=== PATIENT | female | born 1950 | race Caucasian/White ===

== ENCOUNTER 2017-02-20 19:13 | Emergency (ER) | payer OTHER, MEDICAID ==
[~2017-02-20] VITALS: Ht 157.5 cm; Wt 54.4 kg
[2017-02-20 19:13] VITALS: BP_SYST 146
[2017-02-20] MEDS ORDERED: GASTROGRAFIN 120 ML ONE (19:51)
[2017-02-20 20:06] VITALS: BP_SYST 146
== END 2017-02-20 20:06 | disposition home or self-care (01) ==
LOC: SED 19:13
DX: Z43.1 Encounter for attention to gastrostomy (principal); E11.9 Type 2 diabetes mellitus without complications; F03.90 Unspecified dementia, unspecified severity, without behavioral disturbance, psychotic disturbance, mood disturbance, and anxiety
CPT/HCPCS: 43760; 74240; 99284; Q9963

== ENCOUNTER 2020-11-24 11:01 | Inpatient (IN) | payer OTHER, MEDICAID, SELFPAY ==
[~2020-11-24] VITALS: Ht 154.9 cm; Wt 56.7 kg
[~2020-11-24 11:01] MED LIST: ACET325T53 GT; ASCO500T20 GT; DOCU-144 GT; FER300L GT; HYDR-3919 GT; MULT-1184 GT; SACC250C3 GT; VANORAL GT
[2020-11-24 11:03] VITALS: BP_SYST 122
--- NOTE | 2020-11-24 11:05 | NUR ---
ER at bedside examining patient.
--- NOTE | 2020-11-24 11:08 | NUR ---
Placed in room 06 . Placed on manager cancer, blood pressure machine and pulse oximeter. To gown for exam. Side rails up.
--- NOTE | 2020-11-24 11:10 | NUR ---
Pt brought in ACLS by [facility] from [facility] for c/o fever and "sepsis x5 days" per staff at facility. Pt is non verbal, awake on non rebreather at 96%. All other VSS. Pt is at baseline. Cap refill >3, skin dry and warm with rectal temp of 101.2.
--- NOTE | 2020-11-24 11:13 | NUR ---
# 22 gauge angiocath placed to right hand. Use of asceptic technique. Opsite placed over site. Blood return noted. Blood for lab drawn from site. Flushed with 10 cc of normal saline. No evidence of infiltration noted. Patient tolerated well.
[2020-11-24] MEDS ORDERED: PRO40 GT (11:19)
[2020-11-24] MEDS ORDERED: DONE10TA44 GT (11:19)
[2020-11-24] MEDS ORDERED: MULT-1089 GT (11:19)
--- NOTE | 2020-11-24 11:20 | NUR ---
Medication reconciliation completed with information provided by [facility]. Any prior medication reconciliation on file was reviewed and corrected.
--- NOTE | 2020-11-24 11:20 | NUR ---
Belongings list completed
[2020-11-24 11:36] LABS: BASOPHILS % (AUTO) 0.2 % (0.0-2.0); HEMATOCRIT 41.2 % (36-48); HEMOGLOBIN 13.8 g/dL (12.0-16.0); LYMPHOCYTES # (AUTO) 0.4 K/uL (1.0-5.5); MEAN CORPUSCULAR HEMOGLOBIN 31 pg (27-31); MEAN CORPUSCULAR HGB CONC 33 % (32-36); MEAN CORPUSCULAR VOLUME 92 fL (79.0-98.0); MONOCYTES # (AUTO) 0.6 K/uL (0.0-1.0); MONOCYTES % (AUTO) 2.9 % (1.7-9.3); NEUTROPHILS % (AUTO) 94.9 % (40.0-70.0); PLATELET COUNT (AUTO) 198 K/uL (130-430); RED BLOOD CELL COUNT(AUTO) 4.51 MIL/uL (4.2-6.2); RED CELL DISTRIBUTION WIDTH 13.3 % (9.0-15.0); WHITE BLOOD COUNT (AUTO) 21.1 K/uL (4.8-10.8)
[2020-11-24 11:50] LABS: ANION GAP 14 (5-15); CALCIUM 9.5 mg/dL (8.4-11.0); CHLORIDE 106 mmol/L (98-107); CREATININE 2.28 mg/dL (0.55-1.30); GLUCOSE 210 mg/dL (70-99); POTASSIUM 5.1 mmol/L (3.5-5.1); SODIUM SERUM 139 mmol/L (136-145); UREA NITROGEN, BLOOD 33 mg/dL (8-21)
--- NOTE | 2020-11-24 11:52 | NUR ---
# 14 FR In and Out catheter with use of sterile technique. Immediate return of 200 ml dark yellow urine noted. Urine sample collected and sent to lab. Pt tolerated procedure well. Patient unable to toilet self.
[2020-11-24 11:54] LABS: PROTHROMBIN TIME 10.2 SECS (9.5-12.5)
--- NOTE | 2020-11-24 11:54 | NUR ---
Pt placed on 6L nc with 02 sat of 98%. Addendum: 11/24/20 at 1302 by SDEDHD Pt placed on 6l mask with 02 98%
[2020-11-24 11:55] LABS: ALANINE AMINOTRANSFERASE 66 U/L (12-78); ALBUMIN 3.4 g/dL (3.4-4.8); ASPARTATE AMINOTRANSFERASE 40 U/L (10-37); C-REACTIVE PROTEIN QUANT 9.3 mg/dL (0-0.5); TOTAL BILIRUBIN 0.5 mg/dL (0.0-1.0)
[2020-11-24 12:18] LABS: BILIRUBIN,URINE NEGATIVE (NEGATIVE); BLOOD, URINE NEGATIVE (NEGATIVE); COLOR,URINE YELLOW (YELLOW); GLUCOSE,URINE NEGATIVE (NEGATIVE); KETONES,URINE NEGATIVE (NEGATIVE); LEUKOCYTE ESTERASE ,URINE NEGATIVE (NEGATIVE); NITRITE, URINE NEGATIVE (NEGATIVE); PROTEIN URINE 1+ (NEGATIVE); UROBILINOGEN,URINE 0.2 (0.2-1.0)
[2020-11-24 12:19] LABS: CLARITY/URINE SLIGHTLY HAZY (CLEAR)
[2020-11-24] MEDS ORDERED: LEVOFLOXACIN IN DEXTROSE 5 % 100 ML IV ONE (13:15)
--- NOTE | 2020-11-24 13:16 | NUR ---
Admit orders received from Dr. Phillips, pt to go to Tele bed 112B
[2020-11-24] MEDS: NACL 0.9% 1,000 ML IV SCH ×2 (13:28→22:20)
--- NOTE | 2020-11-24 13:53 | NUR ---
ADMISSION NOTE Received patient from ER via gurney. Patient admitted with diagnosis of aspiratation pneumonia. Patient is awake, alert, oriented X [0, nonverbal. Patient oriented to hospital room, call light, toileting, pain management and safety. Patient unable to verbalize understanding. Personal belongings checked and Belongings List documented. Call light within reach. On 5 L nasal cannula and tolerating well. Will monitor.
[2020-11-24] MEDS ORDERED: ACETAMINOPHEN 325 MG TABLET GT PRN (14:15)
[2020-11-24] MEDS ORDERED: LevALBUTEROL HCL 1.25 MG/0.5 ML *CONC.* VIAL.NEB (XOPENEX CONC.) INH PRN (14:15)
[2020-11-24] MEDS ORDERED: LevALBUTEROL HCL 1.25 MG/0.5 ML *CONC.* VIAL.NEB (XOPENEX CONC.) INH ONE (14:15)
[2020-11-24 14:29] VITALS: BP_SYST 114
--- NOTE | 2020-11-24 14:45 | NUR ---
Dr. Phillips rounds to see patient. Will follow through with new orders. Will monitor.
[2020-11-24] MEDS ORDERED: [UNRECOGNIZED DRUG - OTHER] IV SCH (15:00)
[2020-11-24 15:09] VITALS: BP_SYST 103
[2020-11-24 16:00] VITALS: BP_SYST 150
--- NOTE | 2020-11-24 16:28 | NUR ---
Patient will be admitted to care of [facility]. Admitted to tele unit. Will go to room 112-b. Belongings list completed. Complete and up to date summary report printed. SBAR report to be given at bedside with opportunity for questions.
--- NOTE | 2020-11-24 16:58 | NUR ---
RN note Patient is resting in bed. O2 at 5 L nasal cannula, O2 sat at 98%. Colostomy emptied, 200ml of loose brown stool noted. IV is patent, infusing fluids at 150 ml/hr. Tube feedings at 40 ml/ hour and tolerating well. Patient is calm, resting in bed. Vitals are stable. Will monitor.
--- NOTE | 2020-11-24 18:35 | NUR ---
Dr. Jacqueline mtz MD to see patient. Verbal order for Pat catheter insertion to monitor urine output. Noted and will carry out.
[2020-11-24] MEDS ORDERED: DEXTROSE 50%-WATER 50 ML DISP.SYRIN IVP PRN (18:45)
[2020-11-24] MEDS ORDERED: D5W 1,000 ML IV PRN (18:45)
[2020-11-24] MEDS ORDERED: GLUCOSE (DEXTROSE) ORAL GEL -Adults PO PRN (18:45)
--- NOTE | 2020-11-24 18:49 | NUR ---
CARROLL CATH: # 16 FR Carroll catheter with 10 cc bulb inserted with use of sterile technique. Bulb inflated with 10 cc sterile water. Immediate return of 200 cc YELLOW urine noted. Bedside drainage bag placed below level of bladder. Pt tolerated procedure well.
--- NOTE | 2020-11-24 18:51 | NUR ---
Closing note Patient is resting in bed at this time, on 5 L nasal cannula and tolerating well with no signs of shortness of breath noted. O2 is at 96%. IV is patent, infusing fluids as ordered. G tube feedings running at 40 ml/ hr. Tolerating well. Pat catheter attached draining by gravity. Bed locked and in lowest position. Call light within reach. Bed alarm on. Will endorse to night nurse.
[2020-11-24] MEDS: INSULIN REGULAR, HUMAN 100 UNITS/ML, 10 ML VIAL (humuLIN R) SUBCUT PRN (18:58)
--- NOTE | 2020-11-24 19:15 | NUR ---
OPENING NOTES PATIENT RESTING, HOB ELEVATED, NO RESPIRATORY DISTRESS NOTED. CALL LIGHT WITHIN REACH, PATIENT UNABLE TO USE CALL LIGHT, WILL CLOSELY MONITOR, BED ALARM ON, BED AT LOWEST POSITION, BED LOCKED. CARROLL CATHETER IN PLACE, NO KINKS, NO LOOPS, BAG NOT TOUCHING THE FLOOR. FALL, RESPIRATORY, ASPIRATION, AND SAFETY PRECAUTIONS IN PLACE. WILL CONTINUE TO MONITOR.
[2020-11-24] MEDS: LevALBUTEROL HCL 1.25 MG/0.5 ML *CONC.* VIAL.NEB (XOPENEX CONC.) INH SCH (19:19)
[2020-11-24 20:00] VITALS: BP_SYST 95
[2020-11-24] MEDS: DONEPEZIL HCL 5 MG TABLET (ARICEPT) GT SCH (20:52)
[2020-11-24] MEDS: ZOSYN (PIPERACILLIN/TAZO) 2.25 GM in DEX-ISO (50ml) IV SCH (20:53)
[2020-11-25] VITALS: BP_SYST 112
--- NOTE | 2020-11-25 01:15 | NUR ---
PATIENT RESTING, NO SIGNS OF DISTRESS NOTED. ORAL CARE PROVIDED. WILL CONTINUE TO MONITOR.
[2020-11-25] MEDS: LevALBUTEROL HCL 1.25 MG/0.5 ML *CONC.* VIAL.NEB (XOPENEX CONC.) INH SCH ×4 (01:22→19:22)
[2020-11-25] MEDS: ZOSYN (PIPERACILLIN/TAZO) 2.25 GM in DEX-ISO (50ml) IV SCH ×4 (04:31→21:26)
--- NOTE | 2020-11-25 05:19 | NUR ---
Swallow Eval Called Left a message with Edita, regarding swallow eval consult ordered by Dr. Phillips,
[2020-11-25] MEDS: NACL 0.9% 1,000 ML IV SCH ×3 (05:57→16:21)
[2020-11-25] MEDS: INSULIN REGULAR, HUMAN 100 UNITS/ML, 10 ML VIAL (humuLIN R) SUBCUT PRN (06:06)
[2020-11-25] MEDS: LANSOPRAZOLE 30 MG CAPSULE.DR GT SCH (06:06)
--- NOTE | 2020-11-25 06:22 | NUR ---
CLOSING NOTES PATIENT RESTING, HOB ELEVATED, NO RESPIRATORY DISTRESS NOTED THROUGHOUT SHIFT. CALL LIGHT WITHIN REACH, PATIENT UNABLE TO USE CALL LIGHT,CLOSELY MONITORED, BED ALARM ON, BED AT LOWEST POSITION, BED LOCKED. CARROLL CATHETER IN PLACE, NO KINKS, NO LOOPS, BAG NOT TOUCHING THE FLOOR. FALL, RESPIRATORY, ASPIRATION, AND SAFETY PRECAUTIONS IN PLACE THROUGHOUT SHIFT. ALL NEEDS MET THROUGHOUT SHIFT.
[2020-11-25 07:12] LABS: BASOPHILS % (AUTO) 0.1 % (0.0-2.0); HEMATOCRIT 32.3 % (36-48); HEMOGLOBIN 10.8 g/dL (12.0-16.0); LYMPHOCYTES # (AUTO) 0.6 K/uL (1.0-5.5); LYMPHOCYTES % (AUTO) 2.9 % (20.5-51.5); MEAN CORPUSCULAR HEMOGLOBIN 31 pg (27-31); MEAN CORPUSCULAR HGB CONC 34 % (32-36); MEAN CORPUSCULAR VOLUME 91 fL (79.0-98.0); MONOCYTES # (AUTO) 0.5 K/uL (0.0-1.0); MONOCYTES % (AUTO) 2.3 % (1.7-9.3); NEUTROPHILS # (AUTO) 18.4 K/uL (1.8-7.7); NEUTROPHILS % (AUTO) 94.7 % (40.0-70.0); PLATELET COUNT (AUTO) 136 K/uL (130-430); RED BLOOD CELL COUNT(AUTO) 3.55 MIL/uL (4.2-6.2); RED CELL DISTRIBUTION WIDTH 13.3 % (9.0-15.0); WHITE BLOOD COUNT (AUTO) 19.5 K/uL (4.8-10.8)
--- NOTE | 2020-11-25 07:40 | NUR ---
Opening note Received report from night nurse. Patient is alert and oriented X0, Nonverbal. Resting in bed. On 5 L nasal cannula and tolerating well with no signs of shortness of breath noted. IV is patent, infusing fluids as ordered. G tube in place. Tube feedings stopped at this time due to high residual noted. Pat catheter attached, draining by gravity. Fall, safety and aspiration precautions in place. Will continue to monitor.
[2020-11-25 07:57] LABS: ANION GAP 12 (5-15); CALCIUM 8.8 mg/dL (8.4-11.0); CHLORIDE 110 mmol/L (98-107); GLUCOSE 154 mg/dL (70-99); POTASSIUM 4.4 mmol/L (3.5-5.1); SODIUM SERUM 142 mmol/L (136-145); UREA NITROGEN, BLOOD 40 mg/dL (8-21)
[2020-11-25 08:00] VITALS: BP_SYST 109
[2020-11-25] MEDS: MULTIVITAMINS TAB 1 TABLET GT SCH (08:38)
[2020-11-25] MEDS: DOCUSATE SODIUM 100 MG/10 ML UDC GT SCH (08:38)
[2020-11-25] MEDS: ENOXAPARIN SODIUM 30 MG/0.3 ML SYRINGE SUBCUT SCH (08:39)
--- NOTE | 2020-11-25 10:05 | NUR ---
Nutrition Update Mario Scale 16 noted. Pt admitted for aspiration pneumonia and sepsis. Diet: Glucerna 1.2 at 40 ml/hr, Free Water Flush: 50 via GT BMI: 23.6 kg/m2 RD to follow per nutrition care standards.
--- NOTE | 2020-11-25 11:09 | NUR ---
TUBE FEEDING RESIDUAL Patient has high G tube feeding residual. 150 ml noted. Tube feeding held. Will recheck. Patient vitals are stable. On 5 L nasal cannula and tolerating well. Will monitor.
[2020-11-25 12:34] VITALS: BP_SYST 102
--- NOTE | 2020-11-25 12:49 | NUR ---
SWALLOW/ORAL EVAL CALLED [employer] LEFT A VOICEMAIL WITH JUSTIN.
--- NOTE | 2020-11-25 13:00 | NUR ---
DR. WERNER ROUNDS MD to see patient. Informed him of residual and need to hold feedings. No new orders at this time. Will monitor.
--- NOTE | 2020-11-25 15:02 | NUR ---
RN NOTE Spoke to Dr. Phillips on the floor. Orders to change fluid rate to 100 ml/hr. No residual noted at this time. Tube feeding started again at 30 ml/hr per MD orders. Will monitor tolerance. Repositioned. Colostomy emptied, 100 ml loose brown stool noted. Will continue to monitor.
[2020-11-25 16:25] VITALS: BP_SYST 104
--- NOTE | 2020-11-25 18:53 | NUR ---
Closing note Patient is resting in bed at this time, on 5 L nasal cannula and tolerating well with no signs of shortness of breath noted. IV is patent, infusing fluids as ordered. G tube feedings running at 30 ml/ hr. Tolerating well. Pat catheter attached draining by gravity. Bed locked and in lowest position. Call light within reach. Bed alarm on. Will endorse to night nurse.
[2020-11-25] MEDS: DONEPEZIL HCL 5 MG TABLET (ARICEPT) GT SCH (21:25)
[2020-11-25] MEDS: METOCLOPRAMIDE HCL 10 MG/2 ML VIAL IVP SCH (21:26)
[2020-11-26 00:58] VITALS: BP_SYST 131
[2020-11-26] MEDS: LevALBUTEROL HCL 1.25 MG/0.5 ML *CONC.* VIAL.NEB (XOPENEX CONC.) INH SCH ×4 (01:22→19:20)
--- NOTE | 2020-11-26 03:15 | NUR ---
PATIENT RESTING, NO RESPIRATORY DISTRESS NOTED, SNORING NOTED. WILL CONTINUE TO MONITOR.
[2020-11-26] MEDS: ZOSYN (PIPERACILLIN/TAZO) 2.25 GM in DEX-ISO (50ml) IV SCH ×4 (05:12→21:00)
[2020-11-26] MEDS: LANSOPRAZOLE 30 MG CAPSULE.DR GT SCH (06:40)
[2020-11-26] MEDS: NACL 0.9% 1,000 ML IV SCH ×3 (06:40→18:10)
[2020-11-26 06:42] LABS: BASOPHILS % (AUTO) 0.2 % (0.0-2.0); EOSINOPHILS # (AUTO) 0.1 K/uL (0.0-0.4); EOSINOPHILS % (AUTO) 0.6 % (0.0-4.0); HEMATOCRIT 28.5 % (36-48); HEMOGLOBIN 9.6 g/dL (12.0-16.0); LYMPHOCYTES # (AUTO) 0.8 K/uL (1.0-5.5); LYMPHOCYTES % (AUTO) 4.8 % (20.5-51.5); MEAN CORPUSCULAR HEMOGLOBIN 31 pg (27-31); MEAN CORPUSCULAR HGB CONC 34 % (32-36); MEAN CORPUSCULAR VOLUME 92 fL (79.0-98.0); MONOCYTES # (AUTO) 0.4 K/uL (0.0-1.0); MONOCYTES % (AUTO) 2.6 % (1.7-9.3); NEUTROPHILS % (AUTO) 91.8 % (40.0-70.0); PLATELET COUNT (AUTO) 114 K/uL (130-430); RED CELL DISTRIBUTION WIDTH 13.5 % (9.0-15.0); WHITE BLOOD COUNT (AUTO) 16.4 K/uL (4.8-10.8)
--- NOTE | 2020-11-26 07:15 | NUR ---
CLOSING NOTES PATIENT RESTING, HOB ELEVATED, NO RESPIRATORY DISTRESS NOTED, CURRENTY WITH BREATHING TREATMENT. CALL LIGHT WITHIN REACH, PATIENT UNABLE TO USE CALL LIGHT, WILL CLOSELY MONITOR, BED ALARM ON, BED AT LOWEST POSITION, BED LOCKED. CARROLL CATHETER IN PLACE, NO KINKS, NO LOOPS, BAG NOT TOUCHING THE FLOOR. FALL, RESPIRATORY, ASPIRATION, AND SAFETY PRECAUTIONS IN PLACE THROUGHOUT SHIFT. ALL NEEDS MET THROUGHOUT SHIFT. WILL ENDORSE CARE TO ONCOMING SHIFT.
[2020-11-26 07:51] LABS: ANION GAP 10 (5-15); CALCIUM 8.3 mg/dL (8.4-11.0); CHLORIDE 114 mmol/L (98-107); CREATININE 0.95 mg/dL (0.55-1.30); GLUCOSE 114 mg/dL (70-99); POTASSIUM 4.2 mmol/L (3.5-5.1); SODIUM SERUM 141 mmol/L (136-145); UREA NITROGEN, BLOOD 23 mg/dL (8-21)
[2020-11-26 08:15] VITALS: BP_SYST 110
--- NOTE | 2020-11-26 08:15 | NUR ---
Patient quietly in bed with no distress noted at this time. Patient stable.
[2020-11-26] MEDS: DOCUSATE SODIUM 100 MG/10 ML UDC GT SCH (09:49)
[2020-11-26] MEDS: MULTIVITAMINS TAB 1 TABLET GT SCH (09:49)
[2020-11-26] MEDS: METOCLOPRAMIDE HCL 10 MG/2 ML VIAL IVP SCH ×2 (09:50→21:01)
[2020-11-26] MEDS: ENOXAPARIN SODIUM 30 MG/0.3 ML SYRINGE SUBCUT SCH (09:54)
--- NOTE | 2020-11-26 09:55 | NUR ---
Scheduled IV abx, subq med, and G-tube medications given per order. Patient stable at this time.
--- NOTE | 2020-11-26 11:15 | NUR ---
Patient resting comfortably in bed with eyes closed. Patient stable at this time.
--- NOTE | 2020-11-26 11:54 | NUR ---
S.T. SWALLOW EVAL SWALLOW EVAL COMPLETED. PT PRESENTS W/ SEV OROPHARYNGEAL DYSPHAGIA CHARACTERIZED BY INCONSISTENT AIR BAG BUILDER OF BOLUS, OVERREACTIVE BITE REFLEX, DELAYED BOLUS TRANSFER, SUSPECTED DELAYED SWALLOW, AND COUGHING ON TSP HONEY THICK LIQUIDS INDICATING RISK FOR ASPIRATION. PT IS AT HIGH RISK FOR ASPIRATION, MALNUTRITION, AND DEHYDRATION. REC: NPO - CONTINUE TF. NURSE RAMA NOTIFIED.
[2020-11-26 12:26] VITALS: BP_SYST 124
--- NOTE | 2020-11-26 13:15 | NUR ---
Checked blood sugar: 105 mg/dl - no coverage required. Patient receiving breathing treatment at this time. Patient stable.
--- NOTE | 2020-11-26 14:33 | NUR ---
Scheduled IV abx given per order. Patient resting quietly in bed with no respiratory distress noted. Patient stable.
--- NOTE | 2020-11-26 15:45 | NUR ---
Patient resting comfortably in bed with no distress noted. Patient stable.
[2020-11-26 16:55] VITALS: BP_SYST 121
--- NOTE | 2020-11-26 17:24 | NUR ---
Dietitian Recommendations * Recommend Glucerna 1.5 at 45 ml/hr (goal rate) via GT Provides: 1620 kcal/day, 89 gm protein/day Meets: 95% of lower end of estimated caloric needs and 103% of upper end of estimated protein needs * Free Water Flush per physician d/t ARF LP, RD Please refer to Nutrition Assessment for details. Addendum: 11/26/20 at [address] Amended: Links added.
--- NOTE | 2020-11-26 18:20 | NUR ---
Checked blood sugar: 111 mg/dl - no cover required. Patient stable throughout shift.
--- NOTE | 2020-11-26 18:30 | NUR ---
Checked residuals: 10mls. Flushed G-tube with 200mls of free water. Patient stable throughout shift.
--- NOTE | 2020-11-26 19:30 | NUR ---
OPENING NOTE RECEIVED REPORT FROM DAY RN. PATIENT LAYING IN BED WITH RESPIRATIONS EVEN AND UNLABORED ON 2L 02 VIA NC. NO SIGNS OF DISTRESS NOTED. PATIENT NONVERBAL. RIGHT HAND IV 22G. PATENT AND INTACT RUNNING IVF NO SIGNS OF INFILTRATION NOTED. RLQ COLOSTOMY BAG INTACT. G-TUBE INTACT RUNNING TUBE FEEDING. CARROLL CATHETER INTACT DRAINING YELLOW FLUID. BED IN LOWEST AND LOCKED POSITION. CALL LIGHT WITHIN REACH. WILL CONTINUE TO MONITOR.
[2020-11-26 20:03] VITALS: BP_SYST 134
[2020-11-26] MEDS: DONEPEZIL HCL 5 MG TABLET (ARICEPT) GT SCH (21:01)
--- NOTE | 2020-11-26 21:45 | NUR ---
ROUNDS G TUBE DRESSING CHANGED. PT TOLERATED WELL. WILL CONTINUE TO MONITOR.
[2020-11-27 00:45] VITALS: BP_SYST 141
[2020-11-27] MEDS: LevALBUTEROL HCL 1.25 MG/0.5 ML *CONC.* VIAL.NEB (XOPENEX CONC.) INH SCH ×4 (02:09→19:19)
[2020-11-27] MEDS: ZOSYN (PIPERACILLIN/TAZO) 2.25 GM in DEX-ISO (50ml) IV SCH ×4 (03:08→20:32)
[2020-11-27] MEDS: LANSOPRAZOLE 30 MG CAPSULE.DR GT SCH (05:56)
[2020-11-27] MEDS: NACL 0.9% 1,000 ML IV SCH ×3 (05:57→18:21)
--- NOTE | 2020-11-27 06:10 | NUR ---
G-TUBE RESIDUAL CHECK RESIDUAL CHECKED WITH HIGH AMOUNT OF 120ML. TUBE FEEDING HELD AT THIS TIME. WILL ENDORSE TO DAY RN. VS STABLE. NO SIGNS OF DISTRESS NOTED.
--- NOTE | 2020-11-27 06:17 | NUR ---
CLOSING NOTE PATIENT LAYING IN BED WITH RESPIRATIONS EVEN AND UNLABORED ON 2L O2 VIA NC. NO SIGNS OF DISTRESS NOTED. CARROLL INTACT AND DRAINING YELLOW FLUID. LUQ COLOSTOMY BAD INTACT WITH BROWN LOOSE STOOL NOTED. LEFT G-TUBE INTACT. DRESSING CLEAN. RIGHT HAND IV RUNNING IVF AT 100ML/HR. BED IN LOWEST AND LOCKED POSITION. CALL LIGHT WITHIN REACH. SAFETY/FALL PRECAUTIONS IN PLACE. ALL NEEDS MET. WILL ENDORSE TO DAY RN.
[2020-11-27 07:27] LABS: BASOPHILS % (AUTO) 0.1 % (0.0-2.0); EOSINOPHILS # (AUTO) 0.4 K/uL (0.0-0.4); HEMOGLOBIN 8.5 g/dL (12.0-16.0); LYMPHOCYTES # (AUTO) 0.9 K/uL (1.0-5.5); LYMPHOCYTES % (AUTO) 9.9 % (20.5-51.5); MEAN CORPUSCULAR HEMOGLOBIN 31 pg (27-31); MEAN CORPUSCULAR HGB CONC 34 % (32-36); MEAN CORPUSCULAR VOLUME 91 fL (79.0-98.0); MONOCYTES # (AUTO) 0.4 K/uL (0.0-1.0); MONOCYTES % (AUTO) 4.7 % (1.7-9.3); NEUTROPHILS # (AUTO) 7.7 K/uL (1.8-7.7); NEUTROPHILS % (AUTO) 81.3 % (40.0-70.0); PLATELET COUNT (AUTO) 116 K/uL (130-430); RED BLOOD CELL COUNT(AUTO) 2.74 MIL/uL (4.2-6.2); RED CELL DISTRIBUTION WIDTH 13.3 % (9.0-15.0); WHITE BLOOD COUNT (AUTO) 9.4 K/uL (4.8-10.8)
[2020-11-27 07:39] LABS: ANION GAP 10 (5-15); CALCIUM 8.1 mg/dL (8.4-11.0); CHLORIDE 111 mmol/L (98-107); CREATININE 0.81 mg/dL (0.55-1.30); GLUCOSE 111 mg/dL (70-99); POTASSIUM 3.7 mmol/L (3.5-5.1); SODIUM SERUM 140 mmol/L (136-145); UREA NITROGEN, BLOOD 17 mg/dL (8-21)
[2020-11-27] MEDS: MULTIVITAMINS TAB 1 TABLET GT SCH (09:43)
[2020-11-27] MEDS: DOCUSATE SODIUM 100 MG/10 ML UDC GT SCH (09:43)
[2020-11-27] MEDS: ENOXAPARIN SODIUM 30 MG/0.3 ML SYRINGE SUBCUT SCH (09:44)
[2020-11-27] MEDS: METOCLOPRAMIDE HCL 10 MG/2 ML VIAL IVP SCH ×2 (09:44→20:32)
--- NOTE | 2020-11-27 19:20 | NUR ---
Opening Note Patient is resting, head of bed elevated. No respiratory distress noted. Call light within reach, bed alarm on, bed at lowest position, bed locked. Pat catheter in place, draining by gravity, no kinks, no loops, bag not touching the floor. fall, respiratory, aspiration, and safety precaution in placed. Was endorsed by AM shift RN hold g tube feeding for 4 hours in a 24 hr period. Will continue to monitor.
--- NOTE | 2020-11-27 19:25 | NUR ---
Residual of 270 ml noted. Will hold feeding for now, will reassess at 2029.
[2020-11-27 20:00] VITALS: BP_SYST 144
[2020-11-27] MEDS: DONEPEZIL HCL 5 MG TABLET (ARICEPT) GT SCH (20:32)
[2020-11-28] VITALS: BP_SYST 137
--- NOTE | 2020-11-28 01:00 | NUR ---
Patient is resting, no distress noted, turning provided. Will continue to monitor.
[2020-11-28] MEDS: LevALBUTEROL HCL 1.25 MG/0.5 ML *CONC.* VIAL.NEB (XOPENEX CONC.) INH SCH ×4 (01:04→19:43)
--- NOTE | 2020-11-28 01:30 | NUR ---
New Gtube feeding hung, very little residual noted. Gtube intact, patent, no kinks. Will continue to monitor.
[2020-11-28] MEDS: ZOSYN (PIPERACILLIN/TAZO) 2.25 GM in DEX-ISO (50ml) IV SCH ×4 (03:36→20:40)
[2020-11-28] MEDS: NACL 0.9% 1,000 ML IV SCH ×2 (03:36→14:14)
[2020-11-28] MEDS: LANSOPRAZOLE 30 MG CAPSULE.DR GT SCH (06:11)
--- NOTE | 2020-11-28 06:43 | NUR ---
Closing Note Patient is resting, head of bed elevated. No respiratory distress noted throughout shift. Call light within reach, followed closely, as patient unable to use call light, bed alarm on, bed at lowest position, bed locked. Pat catheter in place, draining by gravity, no kinks, no loops, bag not touching the floor. fall, respiratory, aspiration, and safety precautions in place throughout shift. About 70 ml of residual noted at this time, patient tolerated g tube feeding well throughout shift. All needs met throughout shift. Will endorse care to oncoming shift.
[2020-11-28 08:00] VITALS: BP_SYST 140
[2020-11-28] MEDS: DOCUSATE SODIUM 100 MG/10 ML UDC GT SCH (09:01)
[2020-11-28] MEDS: METOCLOPRAMIDE HCL 10 MG/2 ML VIAL IVP SCH ×2 (09:02→20:39)
[2020-11-28] MEDS: MULTIVITAMINS TAB 1 TABLET GT SCH (09:02)
[2020-11-28] MEDS: ENOXAPARIN SODIUM 30 MG/0.3 ML SYRINGE SUBCUT SCH (09:04)
[2020-11-28 12:00] VITALS: BP_SYST 131
[2020-11-28 16:00] VITALS: BP_SYST 115
--- NOTE | 2020-11-28 19:05 | NUR ---
Opening Note Patient is resting, head of bed elevated. No respiratory distress noted. Call light within reach, patient unable to use call light, will follow closely, bed alarm on, bed at lowest position, bed locked. Pat catheter in place, draining by gravity, no kinks, no loops, bag not touching the floor. Fall, respiratory, aspiration, and safety precaution in placed. Residual of 210 ml at this time, will reassess in an hour. Endorsed by AM shift that Glucerna 1.2 not available, Glucerna 1.5 provided and hung, patient tolerated well. Will continue to monitor.
[2020-11-28 19:10] VITALS: BP_SYST 139
[2020-11-28 20:10] VITALS: BP_SYST 139
[2020-11-28] MEDS: DONEPEZIL HCL 5 MG TABLET (ARICEPT) GT SCH (20:39)
[2020-11-29 00:05] VITALS: BP_SYST 145
--- NOTE | 2020-11-29 00:26 | NUR ---
Patient turned, patient unable to help. No distress noted. Will continue to monitor.
[2020-11-29] MEDS: NACL 0.9% 1,000 ML IV SCH ×2 (00:51→10:21)
[2020-11-29] MEDS: LevALBUTEROL HCL 1.25 MG/0.5 ML *CONC.* VIAL.NEB (XOPENEX CONC.) INH SCH ×3 (01:30→13:21)
[2020-11-29] MEDS: ZOSYN (PIPERACILLIN/TAZO) 2.25 GM in DEX-ISO (50ml) IV SCH ×3 (03:07→14:22)
[2020-11-29] MEDS: LANSOPRAZOLE 30 MG CAPSULE.DR GT SCH (06:05)
--- NOTE | 2020-11-29 06:19 | NUR ---
Closing Note Patient is resting, head of bed elevated. No respiratory distress noted. Call light within reach, patient unable to use call light, will follow closely, bed alarm on, bed at lowest position, bed locked. Pat catheter in place, draining by gravity, no kinks, no loops, bag not touching the floor. Colostomy bag emptied. Fall, respiratory, aspiration, and safety precaution in place throughout shift. Residual of 120 ml at this time. Patient tolerated feeding throughout shift. All Needs met throughout shift. Will endorse care throughout shift.
[2020-11-29 06:58] LABS: BASOPHILS % (AUTO) 0.2 % (0.0-2.0); EOSINOPHILS # (AUTO) 0.4 K/uL (0.0-0.4); EOSINOPHILS % (AUTO) 5.1 % (0.0-4.0); HEMATOCRIT 24.9 % (36-48); HEMOGLOBIN 8.5 g/dL (12.0-16.0); LYMPHOCYTES # (AUTO) 1.1 K/uL (1.0-5.5); LYMPHOCYTES % (AUTO) 12.7 % (20.5-51.5); MEAN CORPUSCULAR HEMOGLOBIN 31 pg (27-31); MEAN CORPUSCULAR HGB CONC 34 % (32-36); MEAN CORPUSCULAR VOLUME 91 fL (79.0-98.0); MONOCYTES # (AUTO) 0.6 K/uL (0.0-1.0); NEUTROPHILS # (AUTO) 6.5 K/uL (1.8-7.7); PLATELET COUNT (AUTO) 170 K/uL (130-430); RED BLOOD CELL COUNT(AUTO) 2.75 MIL/uL (4.2-6.2); RED CELL DISTRIBUTION WIDTH 13.3 % (9.0-15.0); WHITE BLOOD COUNT (AUTO) 8.6 K/uL (4.8-10.8)
[2020-11-29 07:36] LABS: ANION GAP 9 (5-15); CALCIUM 8.2 mg/dL (8.4-11.0); CHLORIDE 112 mmol/L (98-107); CREATININE 0.71 mg/dL (0.55-1.30); GLUCOSE 102 mg/dL (70-99); POTASSIUM 3.7 mmol/L (3.5-5.1); SODIUM SERUM 144 mmol/L (136-145); UREA NITROGEN, BLOOD 15 mg/dL (8-21)
[2020-11-29 08:32] LABS: TOTAL IRON BIND. CAPACITY 111 ug/dL (250-450)
[2020-11-29] MEDS: DOCUSATE SODIUM 100 MG/10 ML UDC GT SCH (08:47)
[2020-11-29] MEDS: METOCLOPRAMIDE HCL 10 MG/2 ML VIAL IVP SCH (08:48)
[2020-11-29] MEDS: ENOXAPARIN SODIUM 30 MG/0.3 ML SYRINGE SUBCUT SCH (08:48)
[2020-11-29] MEDS: MULTIVITAMINS TAB 1 TABLET GT SCH (08:48)
--- NOTE | 2020-11-29 11:39 | NUR ---
CM note: faxed snf referral /ordered dc back to [facility] per dr. Phillips, attn to Curtis. Addendum: 11/29/20 at 1412 by Carly Santana RN Per Curtis: assigned pt to room 50 B, RN to report # [phone]. Booked with Ah[facility]: [facility] for pharmacy picking technician time at 1600 pm . PIERO Bell made aware. DC package placed in [facility].
--- NOTE | 2020-11-29 13:13 | NUR ---
Nutrition F/U Admitting Diagnosis: Aspiration pneumonia and sepsis Medical History Comment: PMH: HTN, DM, dementia, PVD of LE per physician notes Pt was also found w/ dehydration and ARF per physician notes SARS-CoV-2 Ag (Rapid) Negative 11/24 Subjective Information: Pt was seen in bed, EN formula is hanging but not infusing. RD s/w pt's primary RN who reported that EN was held this around 8am and to be resumed around noon. When RD asked RN, she stated that it is a 4hr break from EN. Pt has been tolerating EN well, on issues. Pt is on 2L NC, last BM 11/29 x1 stool total 400ml, Mario scale: 16, pt noted w/ erythema on lower right heel. Abdomen is soft and nondistended w/ active bowel sounds. EN rate: 45ml, GRV: 210ml 11/28. Pt was seen by speech therapist on 11/26 and rec for NPO and to continue w/ EN support. Current Diet Order/Nutrition Support: Glucerna 1.5 at 45 ml/hr, Free Water Flush: per physician via GT x2 days Pertinent Medications reglan, lovenox, MVI, colace liquid, piperacillin/tazobactam IV, SSI Pertinent Labs 11/29: Na 144WNL, K 3.7WNL, BG 102H, BUN 15WNL, Cre 0.71WNL. Height: 5 feet, 1.00 inches Weight: 125 pounds/ 56.537179 kilograms (11/26) -stable Body Mass Index: 23.62 kg/m2 [place]/Adjusted Body Weight: 105#/48 kg Estimated Energy Expenditure (kcals/day) 0066-7121 kcal/day (30-35 kcal/kg CBW d/t sepsis) Estimated Protein Required (g/day) 57-86 gm/day (1-1.5 gm/kg CBW d/t ARF, GERIAT status, sepsis) Estimated Fluid Required (l/day) Per physician d/t ARF Problem/Etiology/Signs/Symptoms Suboptimal EN support related to increased nutritional needs as evidenced by estimated nutritional requirements for sepsis and current TF prescription meets less than 80% of estimated caloric requirements. (*ongoing) Expected Outcomes/Goals - Monitor EN support intake and tolerance w/ goal of pt meeting at least 80% of estimated nutritional needs, labs trending WNL, normal GI function, and skin integrity/wt maintenance Dietitian Recommendations * Recommend: Glucerna 1.5 at 45 ml/hr (goal rate) via GT Provides: 1620 kcal/day, 89 gm protein/day Meets: 95% of lower end of estimated caloric needs and 103% of upper end of estimated protein needs * Free Water Flush per physician d/t ARF Follow Up High Risk: F/U in 2-3days
--- NOTE | 2020-11-29 13:23 | NUR ---
Dietitian Recommendations * Recommend: Glucerna 1.5 at 45 ml/hr (goal rate) via GT Provides: 1620 kcal/day, 89 gm protein/day Meets: 95% of lower end of estimated caloric needs and 103% of upper end of estimated protein needs * Free Water Flush per physician d/t ARF Please see Nutrition F/U note for details. INTERMEDIATE, RD
[2020-11-29 14:45] VITALS: BP_SYST 128
--- NOTE | 2020-11-29 15:48 | NUR ---
CALLED THE FACILITY, [facility], , REPORT TO NELSY, THE ONE WHO WILL BE RECEIVING THIS PATIENT TO ROOM 50B. MADE AWARE PATIENT IS TO CONTINUE WITH IVF, NS AT 100CC /HR, AND ZOSYN 2.25 MG IVPB X 7 DAYS, HEP LOCK ON RIGHT HAND #22 REMAINS, CARROLL DISCONTINUES. NEW COLOSTOMY CHANGED. NOW AWAITING STORE COORDINATOR, EXPECTED AT 1600
--- NOTE | 2020-11-29 16:00 | NUR ---
PATIENT'S DAUGHTER, DELANO MIRANDA, AND MADE AWARE OF THIS TRANSFER.
[2020-11-29] MEDS ORDERED: FERROUS GLUCONATE 324 MG TABLET GT SCH (21:00)
[2020-11-30 04:06] LABS: FOLATE (FOLIC ACID) 8.2 ng/mL (>3.0)
[2020-11-30] MEDS ORDERED: FOLIC ACID 1 MG TABLET GT SCH (09:00)
--- NOTE | 2020-11-30 10:19 | NUR ---
Disposition code 03
== END 2020-11-29 16:12 | DRG 871 ==
LOC: SED 11:01 → STU 13:11
PROVIDERS: ADMIT Family Medicine; ATTEND Family Medicine
DX: A41.9 Sepsis, unspecified organism (principal); J69.0 Pneumonitis due to inhalation of food and vomit; J96.91 Respiratory failure, unspecified with hypoxia; N17.9 Acute kidney failure, unspecified; E86.0 Dehydration; F03.90 Unspecified dementia, unspecified severity, without behavioral disturbance, psychotic disturbance, mood disturbance, and anxiety; Z20.822 Contact with and (suspected) exposure to COVID-19; I10 Essential (primary) hypertension; D50.9 Iron deficiency anemia, unspecified; E11.51 Type 2 diabetes mellitus with diabetic peripheral angiopathy without gangrene
CPT/HCPCS: 36415; 71045; 80048; 80053; 81003; 82607; 82728; 82746; 82962; 83540; 83550; 83605; 83735; 84484; 85025; 85610-TC; 85730-TC; 86140; 87040-TC; 87081; 87086; 92610-GN; 93005; 94640; 94760; 99285; G0378; J1650; J1815; J1956; J2543; J2765; J7612

== ENCOUNTER 2023-12-07 13:13 | Inpatient (IN) | payer OTHER, MEDICAID ==
[~2023-12-07] VITALS: Ht 165.1 cm; Wt 58.5 kg
[2023-12-07 13:13] VITALS: BP_SYST 92; PULSE 94; RESP 14; TEMP 98.2; O2SAT 95
[2023-12-07] MEDS ORDERED: VANCOMYCIN HCL 1000 MG/VIAL IV ONE (13:49)
[2023-12-07] MEDS ORDERED: PIPERACILLIN/TAZOBACTAM 3.375 GM/VIAL (ZOSYN) IV ONE ×2 (13:50)
[2023-12-07] MEDS ORDERED: POLY30DR11 BOTH EYES (13:54)
[2023-12-07] MEDS ORDERED: LANS30CA53 GT (13:54)
[2023-12-07] MEDS ORDERED: HYDR-3927 GT (13:54)
[2023-12-07] MEDS ORDERED: DOCU100T10 GT (13:54)
[2023-12-07] MEDS ORDERED: PRED-531 GT (13:54)
[2023-12-07] MEDS ORDERED: IPRA3AMP9 INH ×2 (13:54)
[2023-12-07] MEDS ORDERED: FOLI-43 GT (13:54)
[2023-12-07] MEDS ORDERED: FERR220S13 GT (13:54)
[2023-12-07] MEDS ORDERED: CARB-61 GT (13:54)
[2023-12-07] MEDS ORDERED: CLON0.5T2 GT (13:54)
[2023-12-07] MEDS ORDERED: CHOL500013 GT (13:54)
[2023-12-07] MEDS ORDERED: CRAN450T9 GT (13:54)
[2023-12-07] MEDS ORDERED: CALC-1230 GT (13:54)
[2023-12-07] MEDS ORDERED: RIVA10TA GT (13:54)
[2023-12-07] MEDS ORDERED: DONE10TA4 GT (13:54)
[2023-12-07] MEDS: IPRATROPIUM/ALBUTEROL SULFATE 3 ML AMPUL.NEB (DUONEB) INH ONE (14:03)
[2023-12-07] MEDS: NS 1000 ML IV.SOLN IV ONE (14:17)
[2023-12-07] MEDS: PIPERACILLIN/TAZO 3.375 GM in D5W 50 ML IV ONE (14:18)
[2023-12-07] MEDS: VANCOMYCIN HCL 1,000 MG in D5W 250 ML IV ONE (15:13)
[2023-12-07 15:47] LABS: BILIRUBIN,URINE NEGATIVE (NEGATIVE); BLOOD, URINE 3+ (NEGATIVE); COLOR,URINE YELLOW (YELLOW); GLUCOSE,URINE TRACE (NEGATIVE); KETONES,URINE NEGATIVE (NEGATIVE); LEUKOCYTE ESTERASE ,URINE 2+ (NEGATIVE); NITRITE, URINE POSITIVE (NEGATIVE); PROTEIN URINE TRACE (NEGATIVE); UROBILINOGEN,URINE 0.2 (0.2-1.0)
[2023-12-07 16:06] LABS: BASOPHILS % (AUTO) 0.2 % (0.0-2.0); HEMATOCRIT 30.7 % (36-48); HEMOGLOBIN 10.3 g/dL (12.0-16.0); LYMPHOCYTES # (AUTO) 0.4 K/uL (1.0-5.5); MEAN CORPUSCULAR HEMOGLOBIN 31 pg (27-31); MEAN CORPUSCULAR HGB CONC 34 % (32-36); MEAN CORPUSCULAR VOLUME 92 fL (79.0-98.0); MONOCYTES # (AUTO) 0.4 K/uL (0.0-1.0); MONOCYTES % (AUTO) 3.2 % (1.7-9.3); NEUTROPHILS # (AUTO) 11.3 K/uL (1.8-7.7); NEUTROPHILS % (AUTO) 93.6 % (40.0-70.0); PLATELET COUNT (AUTO) 212 K/uL (130-430); RED BLOOD CELL COUNT(AUTO) 3.33 MIL/uL (4.2-6.2); RED CELL DISTRIBUTION WIDTH 14.5 % (9.0-15.0)
[2023-12-07 16:11] LABS: BACTERIA,URINE MODERATE /HPF (None Seen); CLARITY/URINE HAZY (CLEAR); MUCUS,URINE None Seen /LPF (None Seen)
[2023-12-07 16:15] LABS: PROTHROMBIN TIME 10.3 SECS (9.5-12.5)
[2023-12-07 16:33] LABS: ALANINE AMINOTRANSFERASE 30 U/L (12-78); ALBUMIN 2.9 g/dL (3.4-4.8); ANION GAP 4 (5-15); ASPARTATE AMINOTRANSFERASE 43 U/L (10-37); BILIRUBIN,DIRECT 0.1 mg/dL (0.0-0.3); CALCIUM 8.9 mg/dL (8.4-11.0); CARBON DIOXIDE 38 mmol/L (23-29); CHLORIDE 100 mmol/L (98-107); CREATININE 0.82 mg/dL (0.55-1.30); GLUCOSE 181 mg/dL (74-106); SODIUM SERUM 142 mmol/L (136-145); TOTAL BILIRUBIN 0.6 mg/dL (0.0-1.0); TOTAL PROTEIN, SERUM 6.3 g/dL (6.4-8.3); UREA NITROGEN, BLOOD 30 mg/dL (8-21)
[2023-12-07] MEDS: D5/0.45 NS 1,000 ML IV ONE (18:24)
[2023-12-07] MEDS ORDERED: LevALBUTEROL HCL 1.25 MG/0.5 ML *CONC.* VIAL.NEB (XOPENEX CONC.) INH SCH (20:45)
[2023-12-07] MEDS ORDERED: LevALBUTEROL HCL 1.25 MG/0.5 ML *CONC.* VIAL.NEB (XOPENEX CONC.) INH PRN (20:45)
[2023-12-07] MEDS ORDERED: NALOXONE HCL 0.4 MG/ML AMP (NARCAN) IVP PRN (20:45)
[2023-12-07] MEDS ORDERED: ACETAMINOPHEN 650 MG/20.3 ML UDC GT PRN (20:45)
[2023-12-07] MEDS ORDERED: CALCIUM 600/VIT D GT SCH (21:00)
[2023-12-07] MEDS ORDERED: NON-FORMULARY MEDICATION (Cranberry Fruit (Cranberry) 1 TAB) GT SCH (21:00)
[2023-12-07 21:04] VITALS: BP_SYST 130; PULSE 84; O2SAT 99
[2023-12-07] MEDS ORDERED: AZITHROMYCIN 500 MG/VIAL (ZITHROMAX) IV ONE (21:39)
[2023-12-07] MEDS: predniSONE 20 MG TABLET GT SCH (21:51)
[2023-12-07] MEDS: clonazePAM 0.5 MG TABLET GT SCH (21:51)
[2023-12-07] MEDS: 0.45% NACL 1,000 ML IV SCH (21:56)
[2023-12-07] MEDS: AZITHROMYCIN 500 MG in NS 250 ML IV SCH (21:59)
[2023-12-07] MEDS ORDERED: ALBUTEROL SULFATE 0.083% 2.5 MG/3 ML VIAL.NEB INH PRN (22:00)
[2023-12-07 22:40] VITALS: BP_SYST 131; PULSE 74; RESP 20; TEMP 98.5
[2023-12-07] MEDS: CARBIDOPA/LEVODOPA 25/100 MG TABLET GT SCH (23:18)
[2023-12-07] MEDS: CALCIUM CARBONATE/VITAMIN D3 1 TAB TABLET GT SCH (23:18)
[2023-12-07] MEDS: CEFEPIME 1 GM in D5W 50 ML IV SCH (23:43)
[2023-12-08] MEDS: ALBUTEROL SULFATE 0.083% 2.5 MG/3 ML VIAL.NEB INH SCH (03:14)
[2023-12-08 05:42] LABS: HEMATOCRIT 30.1 % (36-48); HEMOGLOBIN 9.9 g/dL (12.0-16.0); LYMPHOCYTES # (AUTO) 0.4 K/uL (1.0-5.5); MEAN CORPUSCULAR HEMOGLOBIN 31 pg (27-31); MEAN CORPUSCULAR HGB CONC 33 % (32-36); MEAN CORPUSCULAR VOLUME 93 fL (79.0-98.0); MONOCYTES # (AUTO) 0.2 K/uL (0.0-1.0); MONOCYTES % (AUTO) 1.2 % (1.7-9.3); NEUTROPHILS # (AUTO) 13.7 K/uL (1.8-7.7); NEUTROPHILS % (AUTO) 95.8 % (40.0-70.0); PLATELET COUNT (AUTO) 211 K/uL (130-430); RED BLOOD CELL COUNT(AUTO) 3.24 MIL/uL (4.2-6.2); RED CELL DISTRIBUTION WIDTH 14.1 % (9.0-15.0); WHITE BLOOD COUNT (AUTO) 14.3 K/uL (4.8-10.8)
[2023-12-08 05:55] LABS: ALANINE AMINOTRANSFERASE 15 U/L (12-78); ALBUMIN 2.7 g/dL (3.4-4.8); ANION GAP 5 (5-15); ASPARTATE AMINOTRANSFERASE 54 U/L (10-37); CARBON DIOXIDE 33 mmol/L (23-29); CHLORIDE 104 mmol/L (98-107); CREATININE 0.68 mg/dL (0.55-1.30); GLUCOSE 140 mg/dL (74-106); POTASSIUM 3.7 mmol/L (3.5-5.1); SODIUM SERUM 142 mmol/L (136-145); TOTAL BILIRUBIN 0.5 mg/dL (0.0-1.0); TOTAL PROTEIN, SERUM 6.1 g/dL (6.4-8.3); UREA NITROGEN, BLOOD 18 mg/dL (8-21)
[2023-12-08 07:21] VITALS: O2SAT 98
[2023-12-08] MEDS: CHOLECALCIFEROL (VITAMIN D3) 5,000 UNIT TABLET GT SCH (09:12)
[2023-12-08] MEDS: LANSOPRAZOLE 30 MG CAPSULE.DR GT SCH (09:12)
[2023-12-08] MEDS: DOCUSATE SODIUM 100 MG/10 ML UDC GT SCH (09:12)
[2023-12-08] MEDS: FERROUS SULFATE 300 MG/5 ML UDC GT SCH (09:12)
[2023-12-08] MEDS: PEG 400/HYPROMELLOSE/GLYCERIN 15 ML DROPS BOTH EYES SCH (09:13)
[2023-12-08] MEDS: FOLIC ACID 1 MG TABLET GT SCH (09:13)
[2023-12-08] MEDS: RIVAROXABAN 10 MG TABLET GT SCH (09:18)
[2023-12-08 13:23] VITALS: BP_SYST 164; PULSE 98; RESP 19; TEMP 97.6; O2SAT 100
[2023-12-08 13:36] VITALS: O2SAT 100
[2023-12-08 15:19] LABS: ABG O2 SAT% ESTIMATE 97.9 % (94.0-98.0); BLOOD GAS BASE EXCESS 7.7 mmol/L (-2.0-3.0); BLOOD GAS HCO3 31.1 mmol/L (21.0-28.0); BLOOD GAS PCO2 38.9 mmHg (32.0-45.0); BLOOD GAS PO2 96.8 mmHg (83.0-108.0)
[2023-12-08 15:20] LABS: ALLEN'S TEST POSITIVE (P)
[2023-12-08 17:21] VITALS: BP_SYST 127; PULSE 87; RESP 19; TEMP 98.2; O2SAT 99
[2023-12-08 19:32] VITALS: O2SAT 97
[2023-12-08] MEDS: ACETYLCYSTEINE 20% 4 ML VIAL (RT) INH SCH (19:32)
[2023-12-08 20:00] VITALS: BP_SYST 129; PULSE 82; RESP 16; TEMP 98.1; O2SAT 97
[2023-12-08] MEDS: CARVEDILOL 12.5 MG TABLET (COREG) GT SCH (20:35)
[2023-12-08] MEDS: DONEPEZIL HCL 5 MG TABLET (ARICEPT) GT SCH (20:36)
[2023-12-09] VITALS (9 sets, daily range): BP systolic 121–155; PULSE 63–76; RESP 16–20; TEMP 96.7–98.8; O2SAT 95–100
[2023-12-09 06:47] LABS: HEMATOCRIT 26.9 % (36-48); HEMOGLOBIN 8.7 g/dL (12.0-16.0); LYMPHOCYTES # (AUTO) 0.6 K/uL (1.0-5.5); LYMPHOCYTES % (AUTO) 7.1 % (20.5-51.5); MEAN CORPUSCULAR HEMOGLOBIN 31 pg (27-31); MEAN CORPUSCULAR HGB CONC 33 % (32-36); MEAN CORPUSCULAR VOLUME 96 fL (79.0-98.0); MONOCYTES # (AUTO) 0.2 K/uL (0.0-1.0); MONOCYTES % (AUTO) 1.8 % (1.7-9.3); NEUTROPHILS # (AUTO) 8.2 K/uL (1.8-7.7); NEUTROPHILS % (AUTO) 91.1 % (40.0-70.0); PLATELET COUNT (AUTO) 175 K/uL (130-430); RED BLOOD CELL COUNT(AUTO) 2.81 MIL/uL (4.2-6.2); RED CELL DISTRIBUTION WIDTH 14.4 % (9.0-15.0)
[2023-12-09 06:55] LABS: ALBUMIN 2.3 g/dL (3.4-4.8); ANION GAP 5 (5-15); CARBON DIOXIDE 31 mmol/L (23-29); CHLORIDE 106 mmol/L (98-107); CREATININE 0.62 mg/dL (0.55-1.30); GLUCOSE 132 mg/dL (74-106); POTASSIUM 3.9 mmol/L (3.5-5.1); SODIUM SERUM 142 mmol/L (136-145); TOTAL BILIRUBIN 0.5 mg/dL (0.0-1.0); TOTAL PROTEIN, SERUM 5.5 g/dL (6.4-8.3); UREA NITROGEN, BLOOD 14 mg/dL (8-21)
[2023-12-09 07:38] LABS: ALANINE AMINOTRANSFERASE 24 U/L (12-78); ASPARTATE AMINOTRANSFERASE 25 U/L (10-37)
[2023-12-09] MEDS: INSULIN REGULAR, HUMAN 100 UNITS/ML, 3 ML VIAL (humuLIN R) SUBCUT PRN (23:39)
[2023-12-10] VITALS (12 sets, daily range): BP systolic 107–151; PULSE 65–76; RESP 18–20; TEMP 97.1–99.3; O2SAT 97–99
[2023-12-10 07:25] LABS: HEMATOCRIT 30.7 % (36-48); HEMOGLOBIN 10.1 g/dL (12.0-16.0); LYMPHOCYTES # (AUTO) 0.6 K/uL (1.0-5.5); LYMPHOCYTES % (AUTO) 6.6 % (20.5-51.5); MEAN CORPUSCULAR HEMOGLOBIN 31 pg (27-31); MEAN CORPUSCULAR HGB CONC 33 % (32-36); MEAN CORPUSCULAR VOLUME 92 fL (79.0-98.0); MONOCYTES # (AUTO) 0.4 K/uL (0.0-1.0); MONOCYTES % (AUTO) 4.6 % (1.7-9.3); NEUTROPHILS # (AUTO) 7.7 K/uL (1.8-7.7); NEUTROPHILS % (AUTO) 88.8 % (40.0-70.0); PLATELET COUNT (AUTO) 213 K/uL (130-430); RED BLOOD CELL COUNT(AUTO) 3.33 MIL/uL (4.2-6.2); RED CELL DISTRIBUTION WIDTH 14.1 % (9.0-15.0); WHITE BLOOD COUNT (AUTO) 8.7 K/uL (4.8-10.8)
[2023-12-10 08:04] LABS: TOTAL IRON BIND. CAPACITY 273 ug/dL (250-450)
[2023-12-10 08:37] LABS: ALANINE AMINOTRANSFERASE 35 U/L (12-78); ALBUMIN 2.7 g/dL (3.4-4.8); ANION GAP 7 (5-15); ASPARTATE AMINOTRANSFERASE 20 U/L (10-37); CALCIUM 9.3 mg/dL (8.4-11.0); CARBON DIOXIDE 31 mmol/L (23-29); CHLORIDE 103 mmol/L (98-107); CREATININE 0.76 mg/dL (0.55-1.30); GLUCOSE 135 mg/dL (74-106); SODIUM SERUM 141 mmol/L (136-145); TOTAL BILIRUBIN 0.5 mg/dL (0.0-1.0); TOTAL PROTEIN, SERUM 6.3 g/dL (6.4-8.3); UREA NITROGEN, BLOOD 22 mg/dL (8-21)
[2023-12-10] MEDS: FUROSEMIDE 20 MG/2 ML VIAL IVP ONE (13:22)
[2023-12-10] MEDS: clonazePAM 0.5 MG TABLET GT PRN (22:35)
[2023-12-11] VITALS (11 sets, daily range): BP systolic 118–172; PULSE 61–89; RESP 14–19; TEMP 96.9–98.6; O2SAT 94–100
[2023-12-11] MEDS: HYDROcodone/ACETAMIN 10-325 MG TAB GT PRN (06:00)
== END 2023-12-11 19:24 | DRG 177 ==
LOC: SED 13:13 → STU 17:13 → SMU 12-09 12:00
PROVIDERS: ADMIT Family Medicine; ATTEND Family Medicine
DX: J69.0 Pneumonitis due to inhalation of food and vomit (principal); J96.91 Respiratory failure, unspecified with hypoxia; N17.9 Acute kidney failure, unspecified; E87.20 Acidosis, unspecified; N39.0 Urinary tract infection, site not specified; R65.10 Systemic inflammatory response syndrome (SIRS) of non-infectious origin without acute organ dysfunction; F02.80 Dementia in other diseases classified elsewhere, unspecified severity, without behavioral disturbance, psychotic disturbance, mood disturbance, and anxiety; K21.9 Gastro-esophageal reflux disease without esophagitis; D64.9 Anemia, unspecified; E86.0 Dehydration; J45.909 Unspecified asthma, uncomplicated; E11.51 Type 2 diabetes mellitus with diabetic peripheral angiopathy without gangrene; I10 Essential (primary) hypertension; G20.A1 Parkinson's disease without dyskinesia, without mention of fluctuations; Z93.1 Gastrostomy status; Z79.899 Other long term (current) drug therapy
CPT/HCPCS: 36415; 36600; 71045; 80048; 80053; 80076; 81000; 81001; 81015; 82803; 82810-TC; 82948; 83540; 83550; 83605; 83735; 84484; 85025; 85610; 85730; 87040; 87081; 87086; 87186; 93005; 93971; 94070; 94640; 94760; 99291; G0378; J0456; J0692; J1940; J2543; J3370; J7050; J7060; J7512; J7608

== ENCOUNTER 2024-02-03 04:36 | Inpatient (IN) | payer OTHER ==
[2024-02-03] VITALS (29 sets, daily range): BP systolic 70–160; PULSE 104–145; RESP 16–33; TEMP 98–100.4; O2SAT 91–100
[~2024-02-03] VITALS: Ht 165.1 cm; Wt 61.2 kg
[~2024-02-03 04:36] MED LIST changes: -ACET325T53 GT; -ASCO500T20 GT; +CALC-1230 GT; +CARB-61 GT; +CHOL500013 GT; +CLON0.5T2 GT; +CRAN450T9 GT; -DOCU-144 GT; +DOCU100T10 GT; +DONE10TA4 GT; -FER300L GT; +FERR220S13 GT; +FOLI-43 GT; -HYDR-3919 GT; +HYDR-3927 GT; +IPRA3AMP9 INH; +LANS30CA53 GT; -MULT-1184 GT; +POLY30DR11 BOTH EYES; +PRED-531 GT; +RIVA10TA GT; -SACC250C3 GT; -VANORAL GT
[2024-02-03 06:07] LABS: COLOR,URINE YELLOW (YELLOW)
[2024-02-03 06:08] LABS: BILIRUBIN,URINE 1+ (NEGATIVE); BLOOD, URINE 3+ (NEGATIVE); CLARITY/URINE CLOUDY (CLEAR); GLUCOSE,URINE NEGATIVE (NEGATIVE); KETONES,URINE TRACE (NEGATIVE); PH,URINE 5.5 (5.0-8.0); PROTEIN URINE 1+ (NEGATIVE)
[2024-02-03 06:09] LABS: LEUKOCYTE ESTERASE ,URINE 2+ (NEGATIVE); NITRITE, URINE NEGATIVE (NEGATIVE); UROBILINOGEN,URINE 0.2 (0.2-1.0)
[2024-02-03 06:11] LABS: BACTERIA,URINE MODERATE /HPF (None Seen); CALCIUM OXALATE CRYSTALS,UR 0-10 /HPF (None Seen); RBC,URINE 50-80 /HPF (0-3)
[2024-02-03 06:51] LABS: ALLEN'S TEST POSITIVE (P); BLOOD GAS BASE EXCESS -0.7 mmol/L (-2.0-3.0); BLOOD GAS HCO3 22.8 mmol/L (21.0-28.0); BLOOD GAS PCO2 33.5 mmHg (32.0-45.0)
[2024-02-03 06:52] LABS: ABG O2 SAT% ESTIMATE 99.7 % (94.0-98.0); BLOOD GAS PO2 281.6 mmHg (83.0-108.0)
[2024-02-03 07:02] LABS: BASOPHILS % (AUTO) 0.1 % (0.0-2.0); EOSINOPHILS % (AUTO) 0.1 % (0.0-4.0); HEMATOCRIT 35.3 % (36-48); HEMOGLOBIN 11.5 g/dL (12.0-16.0); LYMPHOCYTES # (AUTO) 0.6 K/uL (1.0-5.5); LYMPHOCYTES % (AUTO) 4.6 % (20.5-51.5); MEAN CORPUSCULAR HEMOGLOBIN 30 pg (27-31); MEAN CORPUSCULAR HGB CONC 33 % (32-36); MEAN CORPUSCULAR VOLUME 92 fL (79.0-98.0); MONOCYTES # (AUTO) 0.2 K/uL (0.0-1.0); MONOCYTES % (AUTO) 1.9 % (1.7-9.3); NEUTROPHILS % (AUTO) 93.3 % (40.0-70.0); PLATELET COUNT (AUTO) 286 K/uL (130-430); RED BLOOD CELL COUNT(AUTO) 3.85 MIL/uL (4.2-6.2); RED CELL DISTRIBUTION WIDTH 14.5 % (9.0-15.0); WHITE BLOOD COUNT (AUTO) 12.8 K/uL (4.8-10.8)
[2024-02-03] MEDS: NACL 0.9% 1,000 ML IV ONE ×2 (07:13→10:49)
[2024-02-03] MEDS: fentaNYL CITRATE/PF 100 MCG/2 ML AMP IVP ONE (07:21)
[2024-02-03] MEDS: ETOMIDATE 20 MG/ 10 ML VIAL (AMIDATE) IVP ONE (07:28)
[2024-02-03] MEDS: VECURONIUM BROMIDE 10 MG/VIAL (NORCURON) IVP ONE (07:28)
[2024-02-03] MEDS ORDERED: [UNRECOGNIZED DRUG - CODE] IV (07:33)
[2024-02-03] MEDS ORDERED: CLON1TAB12 GT (07:33)
[2024-02-03] MEDS ORDERED: MOM GT (07:33)
[2024-02-03] MEDS ORDERED: LACT10SO7 GT (07:33)
[2024-02-03 07:56] LABS: ANION GAP 9 (5-15); CALCIUM 10.2 mg/dL (8.4-11.0); CARBON DIOXIDE 32 mmol/L (23-29); CHLORIDE 97 mmol/L (98-107); CREATININE 1.93 mg/dL (0.55-1.30); GLUCOSE 209 mg/dL (74-106); POTASSIUM 4.7 mmol/L (3.5-5.1); SODIUM SERUM 138 mmol/L (136-145); UREA NITROGEN, BLOOD 42 mg/dL (8-21)
[2024-02-03 08:16] LABS: PROTHROMBIN TIME 10.8 SECS (9.5-12.5)
[2024-02-03] MEDS ORDERED: NACL 0.9% 2,000 ML IV ONE (08:30)
[2024-02-03] MEDS: D5/0.45 NS 1,000 ML IV SCH (10:48)
[2024-02-03] MEDS: PROPOFOL DRIP 100 ML IV ONE (10:51)
[2024-02-03] MEDS: NOREPINEPHRINE BITARTRATE 4 MG in D5W 246 ML IV PRN (11:52)
[2024-02-03] MEDS ORDERED: PIPERACILLIN/TAZO 3.375/DEX-IS 50 ML IV SCH (12:00)
[2024-02-03] MEDS: D5NS 1,000 ML IV SCH (12:11)
[2024-02-03] MEDS ORDERED: MILK OF MAGNESIA 30 ML UDC GT SCH (13:15)
[2024-02-03] MEDS: VANCOMYCIN HCL 1,000 MG in NS 250 ML IV ONE (13:38)
[2024-02-03] MEDS: PIPERACILLIN/TAZO 3.375 GM in NS 50 ML IV ONE (13:39)
[2024-02-03] MEDS: clonazePAM 0.5 MG TABLET GT SCH (13:56)
[2024-02-03 14:13] LABS: INR 1.1 (0.8-1.2); PROTHROMBIN TIME 11.5 SECS (9.5-12.5)
[2024-02-03] MEDS ORDERED: VECURONIUM BROMIDE 10 MG/VIAL (NORCURON) ONE (16:00)
[2024-02-03] MEDS ORDERED: ETOMIDATE 20 MG/ 10 ML VIAL (AMIDATE) ONE (16:00)
[2024-02-03] MEDS ORDERED: ROCURONIUM BROMIDE 10 MG/ML (ZEMURON) ONE (16:00)
[2024-02-03] MEDS: VANCOMYCIN HCL 500 MG in NS 100 ML IV SCH (18:07)
[2024-02-03] MEDS: PIPERACILLIN/TAZO 3.375/DEX-IS 50 ML IV SCH (18:08)
[2024-02-03] MEDS: methylPREDNISolone SOD SUCC/PF 62.5 MG/ML VIAL IVP SCH (18:10)
[2024-02-03] MEDS: IPRATROPIUM/ALBUTEROL SULFATE 3 ML AMPUL.NEB (DUONEB) INH SCH (19:55)
[2024-02-03] MEDS: PHENYLEPHRINE HCL 10 MG/ML VIAL (NEOSYNEPHRINE) ONE (21:56)
[2024-02-03] MEDS: PHENYLEPHRINE HCL 50 MG in NS 245 ML IV PRN (21:59)
[2024-02-03] MEDS: FERROUS SULFATE 300 MG/5 ML UDC GT SCH (22:36)
[2024-02-03] MEDS: DONEPEZIL HCL 5 MG TABLET (ARICEPT) GT SCH (22:36)
[2024-02-03] MEDS: PEG 400/HYPROMELLOSE/GLYCERIN 15 ML DROPS OP SCH (22:37)
[2024-02-03] MEDS: CARBIDOPA/LEVODOPA 25/100 MG TABLET GT SCH (22:37)
[2024-02-03] MEDS: NACL 0.9% 1,000 ML IV SCH (22:39)
[2024-02-03] MEDS: ALBUMIN HUMAN 25% 50 ML IV SCH (22:39)
[2024-02-03] MEDS: CALCIUM CARBONATE/VITAMIN D3 1 TAB TABLET GT SCH (23:11)
[2024-02-03] MEDS: INSULIN REGULAR, HUMAN 100 UNITS/ML, 3 ML VIAL (humuLIN R) SUBCUT PRN (23:43)
[2024-02-04] VITALS (34 sets, daily range): BP systolic 82–181; PULSE 86–123; RESP 16–33; TEMP 96.5–98.8; O2SAT 93–100
[2024-02-04 05:28] LABS: BASOPHILS % (AUTO) 0.1 % (0.0-2.0); EOSINOPHILS # (AUTO) 4.1 K/uL (0.0-0.4); EOSINOPHILS % (AUTO) 13.3 % (0.0-4.0); HEMATOCRIT 31.2 % (36-48); LYMPHOCYTES # (AUTO) 0.4 K/uL (1.0-5.5); LYMPHOCYTES % (AUTO) 1.2 % (20.5-51.5); MEAN CORPUSCULAR HEMOGLOBIN 30 pg (27-31); MEAN CORPUSCULAR HGB CONC 32 % (32-36); MEAN CORPUSCULAR VOLUME 93 fL (79.0-98.0); MONOCYTES # (AUTO) 0.5 K/uL (0.0-1.0); MONOCYTES % (AUTO) 1.6 % (1.7-9.3); NEUTROPHILS # (AUTO) 25.8 K/uL (1.8-7.7); NEUTROPHILS % (AUTO) 83.8 % (40.0-70.0); PLATELET COUNT (AUTO) 177 K/uL (130-430); RED BLOOD CELL COUNT(AUTO) 3.37 MIL/uL (4.2-6.2); RED CELL DISTRIBUTION WIDTH 14.8 % (9.0-15.0)
[2024-02-04 05:48] LABS: WHITE BLOOD COUNT (AUTO) 30.8 K/uL (4.8-10.8)
[2024-02-04 05:49] LABS: ANION GAP 21 (5-15); CARBON DIOXIDE 21 mmol/L (23-29); CHLORIDE 101 mmol/L (98-107); CREATININE 2.21 mg/dL (0.55-1.30); GLUCOSE 204 mg/dL (74-106); POTASSIUM 3.8 mmol/L (3.5-5.1); SODIUM SERUM 143 mmol/L (136-145); UREA NITROGEN, BLOOD 44 mg/dL (8-21)
[2024-02-04] MEDS: FOLIC ACID 1 MG TABLET GT SCH (08:33)
[2024-02-04] MEDS: LANSOPRAZOLE 30 MG CAPSULE.DR GT SCH (08:34)
[2024-02-04] MEDS: LACTULOSE 20 GM/30 ML UDC GT SCH (08:34)
[2024-02-04] MEDS: CHOLECALCIFEROL (VITAMIN D3) 5,000 UNIT TABLET GT SCH (08:34)
[2024-02-04] MEDS: RIVAROXABAN 10 MG TABLET GT SCH (08:38)
[2024-02-04] MEDS ORDERED: CRANBERRY FRUIT PO SCH (09:00)
[2024-02-04] MEDS: HYDROmorphone 1 MG/ML INJ. CARTRIDGE IVP PRN (09:01)
[2024-02-04 09:06] LABS: ALANINE AMINOTRANSFERASE 26 U/L (12-78); ALBUMIN 2.7 g/dL (3.4-4.8); ANION GAP 19 (5-15); ASPARTATE AMINOTRANSFERASE 50 U/L (10-37); CALCIUM 8.7 mg/dL (8.4-11.0); CARBON DIOXIDE 22 mmol/L (23-29); CHLORIDE 101 mmol/L (98-107); CHOLESTEROL 95 mg/dL (<200); CREATININE 2.27 mg/dL (0.55-1.30); GLUCOSE 204 mg/dL (74-106); HDL CHOLESTEROL 23 mg/dL (>55); INR 1.2 (0.8-1.2); POTASSIUM 4.2 mmol/L (3.5-5.1); PROTHROMBIN TIME 12.7 SECS (9.5-12.5); SODIUM SERUM 142 mmol/L (136-145); TOTAL PROTEIN, SERUM 6.6 g/dL (6.4-8.3); TRIGLYCERIDES 206 mg/dL (30-150); UREA NITROGEN, BLOOD 46 mg/dL (8-21)
[2024-02-04] MEDS: AMIODARONE HCL 450 MG in D5W 241 ML IV PRN (10:25)
[2024-02-04] MEDS: PROPOFOL DRIP 100 ML IV PRN (10:27)
[2024-02-04] MEDS ORDERED: *TPN PER PHARMACY XX PRN (13:30)
[2024-02-04] MEDS ORDERED: FUROSEMIDE 100 MG in D5W 90 ML IV SCH (16:45)
[2024-02-04] MEDS: FUROSEMIDE 100 MG in D5W 90 ML IV SCH (17:47)
[2024-02-05] VITALS (34 sets, daily range): BP systolic 18–177; PULSE 69–125; RESP 16–28; TEMP 96.5–98.7; O2SAT 99–100
[2024-02-05 06:25] LABS: INR 1.2 (0.8-1.2); PROTHROMBIN TIME 12.8 SECS (9.5-12.5)
[2024-02-05] MEDS: METOPROLOL TARTRATE 5 MG/5 ML VIAL IVP PRN (07:35)
[2024-02-05 07:45] LABS: AMYLASE 45 U/L (0-100); ANION GAP 24 (5-15); CALCIUM 8.8 mg/dL (8.4-11.0); CARBON DIOXIDE 17 mmol/L (23-29); CHLORIDE 101 mmol/L (98-107); CREATININE 2.44 mg/dL (0.55-1.30); GLUCOSE 218 mg/dL (74-106); PHOSPHORUS 4.4 mg/dL (2.7-4.5); SODIUM SERUM 142 mmol/L (136-145); TOTAL BILIRUBIN 1.3 mg/dL (0.0-1.0); TOTAL PROTEIN, SERUM 5.9 g/dL (6.4-8.3); TRIGLYCERIDES 226 mg/dL (30-150); UREA NITROGEN, BLOOD 57 mg/dL (8-21)
[2024-02-05 08:01] LABS: ALANINE AMINOTRANSFERASE 139 U/L (12-78); ASPARTATE AMINOTRANSFERASE 290 U/L (10-37)
[2024-02-05] MEDS: POLYETHYLENE GLYCOL 3350, 17 GM/ POWD.PACK GT SCH (08:30)
[2024-02-05] MEDS ORDERED: GASTROGRAFIN 120 ML ONE (09:57)
[2024-02-05] MEDS ORDERED: AMIODARONE HCL 450 MG in D5W 241 ML IV SCH (10:15)
[2024-02-05 10:57] LABS: HEMATOCRIT 28.4 % (36-48); HEMOGLOBIN 9.1 g/dL (12.0-16.0); MEAN CORPUSCULAR HEMOGLOBIN 29 pg (27-31); MEAN CORPUSCULAR HGB CONC 32 % (32-36); MEAN CORPUSCULAR VOLUME 91 fL (79.0-98.0); PLATELET COUNT (AUTO) 66 K/uL (130-430); WHITE BLOOD COUNT (AUTO) 29.9 K/uL (4.8-10.8)
[2024-02-05 11:33] LABS: BAND % (MANUAL) 28 % (0-6); BASOPHILS % (MANUAL) 0 % (0-2); EOSINOPHILS % (MANUAL) 0 % (0-7); LYMPHOCYTES % (MANUAL) 1 % (20-46); METAMYELOCYTES % 5 % (0-0); MONOCYTES % (MANUAL) 7 % (0-11)
[2024-02-05 11:34] LABS: PLATELET ESTIMATE DECREASED (ADEQUATE)
[2024-02-05] MEDS ORDERED: TPN CENTRAL IV SCH (21:00)
[2024-02-05] MEDS ORDERED: POTASSIUM ACETATE IV SCH (21:00)
[2024-02-05] MEDS ORDERED: [UNRECOGNIZED DRUG - OTHER] IV SCH (21:00)
[2024-02-05] MEDS ORDERED: MAGNESIUM SULFATE IV SCH (21:00)
[2024-02-05] MEDS ORDERED: MVI IV SCH (21:00)
[2024-02-05] MEDS ORDERED: DEXTROSE 50%-WATER 50 ML DISP.SYRIN IVP PRN (21:45)
[2024-02-05] MEDS: D10W 1,000 ML IV SCH (22:00)
[2024-02-06] VITALS (35 sets, daily range): BP systolic 73–182; PULSE 67–136; RESP 16–24; TEMP 96.8–98.9; O2SAT 93–100
[2024-02-06 09:48] LABS: BASOPHILS # (AUTO) 0.1 K/uL (0.0-0.2); BASOPHILS % (AUTO) 0.2 % (0.0-2.0); EOSINOPHILS # (AUTO) 0.2 K/uL (0.0-0.4); HEMATOCRIT 29.7 % (36-48); HEMOGLOBIN 9.7 g/dL (12.0-16.0); LYMPHOCYTES # (AUTO) 0.3 K/uL (1.0-5.5); LYMPHOCYTES % (AUTO) 1.2 % (20.5-51.5); MEAN CORPUSCULAR HEMOGLOBIN 29 pg (27-31); MEAN CORPUSCULAR HGB CONC 33 % (32-36); MEAN CORPUSCULAR VOLUME 90 fL (79.0-98.0); MONOCYTES # (AUTO) 0.4 K/uL (0.0-1.0); MONOCYTES % (AUTO) 1.7 % (1.7-9.3); NEUTROPHILS # (AUTO) 22.8 K/uL (1.8-7.7); NEUTROPHILS % (AUTO) 95.9 % (40.0-70.0); RED BLOOD CELL COUNT(AUTO) 3.32 MIL/uL (4.2-6.2); RED CELL DISTRIBUTION WIDTH 14.7 % (9.0-15.0)
[2024-02-06] MEDS: DOCUSATE SODIUM 100 MG/10 ML UDC GT PRN (10:06)
[2024-02-06 10:12] LABS: PLATELET COUNT (AUTO) 36 K/uL (130-430)
[2024-02-06 10:22] LABS: ALBUMIN 1.6 g/dL (3.4-4.8); ANION GAP 19 (5-15); CALCIUM 8.5 mg/dL (8.4-11.0); CARBON DIOXIDE 21 mmol/L (23-29); CHLORIDE 99 mmol/L (98-107); CREATININE 2.82 mg/dL (0.55-1.30); GLUCOSE 320 mg/dL (74-106); PHOSPHORUS 4.2 mg/dL (2.7-4.5); POTASSIUM 3.4 mmol/L (3.5-5.1); SODIUM SERUM 139 mmol/L (136-145); TOTAL BILIRUBIN 1.2 mg/dL (0.0-1.0); TOTAL PROTEIN, SERUM 5.6 g/dL (6.4-8.3); UREA NITROGEN, BLOOD 72 mg/dL (8-21)
[2024-02-06 10:23] LABS: WHITE BLOOD COUNT (AUTO) 23.8 K/uL (4.8-10.8)
[2024-02-06 10:36] LABS: ALANINE AMINOTRANSFERASE 127 U/L (12-78)
[2024-02-06 10:38] LABS: ASPARTATE AMINOTRANSFERASE 104 U/L (10-37)
[2024-02-06] MEDS: MEROPENEM 500 MG in NS 50 ML IV SCH (14:16)
[2024-02-06] MEDS ORDERED: AMIODARONE HCL 450 MG in D5W 241 ML IV SCH (17:00)
[2024-02-06] MEDS: FUROSEMIDE 100 MG in D5W 90 ML IV SCH (17:32)
[2024-02-06] MEDS: SODIUM CHLORIDE IV SCH (20:39)
[2024-02-06] MEDS: [UNRECOGNIZED DRUG - OTHER] IV SCH (20:39)
[2024-02-06] MEDS: POTASSIUM ACETATE IV SCH (20:39)
[2024-02-06] MEDS: TPN CENTRAL IV SCH (20:39)
[2024-02-06] MEDS: LORazepam 2 MG/ML VIAL IVP PRN (23:40)
[2024-02-07] VITALS (32 sets, daily range): BP systolic 101–177; PULSE 67–140; RESP 13–21; TEMP 96.8–97.1; O2SAT 99–100
[2024-02-07] MEDS: hydrALAZINE HCL 20 MG/ML VIAL IVP PRN (00:05)
[2024-02-07 07:16] LABS: CALCIUM 8.2 mg/dL (8.4-11.0)
[2024-02-07 08:05] LABS: BASOPHILS % (AUTO) 0.1 % (0.0-2.0); EOSINOPHILS # (AUTO) 0.1 K/uL (0.0-0.4); EOSINOPHILS % (AUTO) 0.9 % (0.0-4.0); HEMATOCRIT 25.2 % (36-48); HEMOGLOBIN 8.5 g/dL (12.0-16.0); LYMPHOCYTES # (AUTO) 0.3 K/uL (1.0-5.5); LYMPHOCYTES % (AUTO) 2.1 % (20.5-51.5); MEAN CORPUSCULAR HEMOGLOBIN 30 pg (27-31); MEAN CORPUSCULAR HGB CONC 34 % (32-36); MEAN CORPUSCULAR VOLUME 89 fL (79.0-98.0); MONOCYTES # (AUTO) 0.4 K/uL (0.0-1.0); MONOCYTES % (AUTO) 3.1 % (1.7-9.3); NEUTROPHILS # (AUTO) 12.9 K/uL (1.8-7.7); RED BLOOD CELL COUNT(AUTO) 2.83 MIL/uL (4.2-6.2); RED CELL DISTRIBUTION WIDTH 14.4 % (9.0-15.0); WHITE BLOOD COUNT (AUTO) 13.8 K/uL (4.8-10.8)
[2024-02-07 08:17] LABS: TOTAL IRON BIND. CAPACITY 145 ug/dL (250-450)
[2024-02-07 08:18] LABS: ALANINE AMINOTRANSFERASE 70 U/L (12-78); ALBUMIN 1.5 g/dL (3.4-4.8); ANION GAP 19 (5-15); ASPARTATE AMINOTRANSFERASE 42 U/L (10-37); CARBON DIOXIDE 19 mmol/L (23-29); CHLORIDE 97 mmol/L (98-107); CREATININE 2.97 mg/dL (0.55-1.30); PHOSPHORUS 3.8 mg/dL (2.7-4.5); SODIUM SERUM 135 mmol/L (136-145); TOTAL BILIRUBIN 0.7 mg/dL (0.0-1.0); TOTAL PROTEIN, SERUM 5.2 g/dL (6.4-8.3); UREA NITROGEN, BLOOD 84 mg/dL (8-21)
[2024-02-07 08:21] LABS: GLUCOSE 487 mg/dL (74-106)
[2024-02-07 08:30] LABS: PLATELET COUNT (AUTO) 31 K/uL (130-430)
[2024-02-07 10:23] LABS: NEUTROPHILS % (AUTO) 93.8 % (40.0-70.0)
[2024-02-07] MEDS ORDERED: LORazepam 2 MG/ML VIAL IVP PRN (11:27)
[2024-02-07] MEDS: INSULIN GLARGINE 100 UNITS/ML, 10 ML VIAL SUBCUT ONE (11:57)
[2024-02-07] MEDS: INSULIN REGULAR, HUMAN 100 UNITS/ML, 3 ML VIAL IV ONE (11:59)
[2024-02-07] MEDS ORDERED: METOCLOPRAMIDE HCL 10 MG TABLET PO SCH (12:00)
[2024-02-07] MEDS: METOCLOPRAMIDE HCL 10 MG TABLET GT SCH (13:23)
[2024-02-07] MEDS ORDERED: INSULIN REGULAR, HUMAN 100 UNITS/ML, 3 ML VIAL IV PRN (15:30)
[2024-02-07] MEDS ORDERED: ALBUMIN HUMAN 25% 50 ML IV ONE (17:15)
[2024-02-07] MEDS: ALBUMIN HUMAN 25% 200 ML IV ONE (17:15)
[2024-02-07] MEDS ORDERED: FUROSEMIDE 100 MG in D5W 90 ML IV SCH (18:00)
[2024-02-07] MEDS: AMIODARONE HCL 450 MG in D5W 241 ML IV SCH (18:55)
[2024-02-07] MEDS: INSULIN GLARGINE 100 UNITS/ML, 10 ML VIAL SUBCUT SCH (21:00)
[2024-02-07] MEDS: SODIUM ACETATE IV SCH (21:57)
[2024-02-07] MEDS: TPN CENTRAL IV SCH (21:57)
[2024-02-07] MEDS: [UNRECOGNIZED DRUG - OTHER] IV SCH (21:57)
[2024-02-07] MEDS: K PHOS IV SCH (21:57)
[2024-02-07] MEDS: POTASSIUM CHLORIDE IV SCH (21:57)
== END 2024-02-08 23:00 | DRG 871 ==
LOC: SED 04:36 → SIC 08:53 → UNDODISIN 02-07 23:00
PROVIDERS: ADMIT Family Medicine; ATTEND Family Medicine
PROC: 5A1945Z Respiratory Ventilation, 24-96 Consecutive Hours (ICD-10-PCS; principal; 2024-02-03)
PROC: 0BH17EZ Insertion of Endotracheal Airway into Trachea, Via Natural or Artificial Opening (ICD-10-PCS; 2024-02-03)
PROC: 30233R1 Transfusion of Nonautologous Platelets into Peripheral Vein, Percutaneous Approach (ICD-10-PCS; 2024-02-06)
PROC: 06HY33Z Insertion of Infusion Device into Lower Vein, Percutaneous Approach (ICD-10-PCS; 2024-02-07)
PROC: B54BZZA Ultrasonography of Right Lower Extremity Veins, Guidance (ICD-10-PCS; 2024-02-07)
PROC: 5A1D70Z Performance of Urinary Filtration, Intermittent, Less than 6 Hours Per Day (ICD-10-PCS; 2024-02-07)
PROC: 5A1D70Z Performance of Urinary Filtration, Intermittent, Less than 6 Hours Per Day (ICD-10-PCS; 2024-02-08)
DX: A41.9 Sepsis, unspecified organism (principal); D61.2 Aplastic anemia due to other external agents; J15.69 Pneumonia due to other Gram-negative bacteria; R65.21 Severe sepsis with septic shock; J96.00 Acute respiratory failure, unspecified whether with hypoxia or hypercapnia; J69.0 Pneumonitis due to inhalation of food and vomit; N17.1 Acute kidney failure with acute cortical necrosis; J15.0 Pneumonia due to Klebsiella pneumoniae; N39.0 Urinary tract infection, site not specified; K94.23 Gastrostomy malfunction; I42.9 Cardiomyopathy, unspecified; J45.909 Unspecified asthma, uncomplicated; G20.A1 Parkinson's disease without dyskinesia, without mention of fluctuations; I10 Essential (primary) hypertension; E11.9 Type 2 diabetes mellitus without complications; R13.10 Dysphagia, unspecified; I48.91 Unspecified atrial fibrillation; E86.0 Dehydration; D69.6 Thrombocytopenia, unspecified; D64.9 Anemia, unspecified; Z79.899 Other long term (current) drug therapy; Z79.1 Long term (current) use of non-steroidal anti-inflammatories (NSAID); Z79.4 Long term (current) use of insulin; Z79.01 Long term (current) use of anticoagulants
CPT/HCPCS: 36415; 36600; 71045; 74250; 80048; 80053; 80061; 81000; 81001; 81015; 82150; 82803; 82948; 83540; 83550; 83605; 83735; 83880; 84100; 84478; 84484; 85007; 85025; 85027; 85610; 85730; 86886; 86900; 86901; 87040; 87070; 87081; 87086; 87186; 87205; 93005; 93306; 94002; 94003; 94070; 94640; 94760; 99291; A5061; C1751; J0360; J1171; J1815; J1940; J2060; J2185; J2543; J2704; J2930; J3010; J3370; J3475; J3480; J3490; J7030; J7042; J7050; J7060; J7131; J8597; P9034; P9046; Q9963